=== PATIENT | female | born 2000 | race Caucasian/White ===

== ENCOUNTER 2021-05-19 13:41 | Emergency (ER) | payer OTHER ==
[2021-05-19 14:24] LABS: HEMOGLOBIN 13.1 gm/dl (12.3-15.3); RED BLOOD COUNT 4.93 M/UL (4.00-5.10); WHITE BLOOD COUNT 7.5 K/UL (4.5-11.0)
[2021-05-19 14:54] LABS: BUN/CREATININE RATIO 12 (0-10)
[2021-05-19] MEDS ORDERED: CEPHALEXIN500 MG PO (15:30)
[2021-05-19] MEDS ORDERED: PHENERGAN 12.12.5 M1 PO (15:38)
== END 2021-05-19 16:26 | disposition home or self-care (01) ==
LOC: ER1 13:41
PROVIDERS: Emergency Medicine
DX: O21.9 Vomiting of pregnancy, unspecified (principal); O23.41 Unspecified infection of urinary tract in pregnancy, first trimester; Z3A.01 Less than 8 weeks gestation of pregnancy; Z88.0 Allergy status to penicillin
CPT/HCPCS: 80053; 81001; 84702; 85025; 86900; 86901; 87040; 87086; 96374; 96375; 99284; J0696; J2550; J7030

== ENCOUNTER 2021-07-25 17:03 | Emergency (ER) | payer OTHER ==
[~2021-07-25 17:03] MED LIST: CEPHALEXIN500 MG PO; PHENERGAN 12.12.5 M1 PO
[2021-07-25 17:53] LABS: HEMOGLOBIN 12.9 gm/dl (12.3-15.3); RED BLOOD COUNT 4.85 M/UL (4.00-5.10); WHITE BLOOD COUNT 9.6 K/UL (4.5-11.0)
[2021-07-25 18:13] LABS: BUN/CREATININE RATIO 13 (0-10)
== END 2021-07-25 19:59 | disposition home or self-care (01) ==
LOC: ER1 17:03
PROVIDERS: Physician Assistant Medical
DX: O20.9 Hemorrhage in early pregnancy, unspecified (principal); Z3A.17 17 weeks gestation of pregnancy; Z88.0 Allergy status to penicillin
CPT/HCPCS: 80053; 81001; 84702; 85025; 99284

== ENCOUNTER 2022-03-01 19:31 | Emergency (ER) | payer OTHER | END 2022-03-01 20:35 | disposition left against medical advice (07) | LOC: ER1 19:31 | DX: Z53.21 Procedure and treatment not carried out due to patient leaving prior to being seen by health care provider (principal) ==